=== PATIENT | male | born 1990 | race Caucasian/White ===

== ENCOUNTER 2018-02-02 03:20 | Emergency (ER) | payer SELFPAY ==
--- NOTE | 2018-02-02 03:43 | EDPHY ---
H & P Stated Complaint: left elbow injury Time Seen by Provider: 02/02/18 03:33 HPI/ROS: HPI The patient presents with left elbow pain which has been present for the last 5 days and he was roughhousing with a friend and hit his elbow on a wooden door. He has had pain of his elbow for the last several days though has had increased bruising throughout his forearm. He comes in for evaluation because of the worsening of his pain. He denies any numbness or tingling of his hand or arm. He does not have any with swelling. REVIEW OF SYSTEMS Constitutional: No fever, no chills. Eyes: No discharge. ENT: No sore throat. Cardiovascular: No chest pain, no palpitations. Respiratory: No cough, no shortness of breath. Gastrointestinal: No abdominal pain, no vomiting. Genitourinary: No hematuria. Musculoskeletal: No back pain. Skin: No rashes. Neurological: No headache. PMHx: Healthy Soc Hx: Alcohol use, cigarette smoker PHYSICAL General Appearance: Alert, no distress Eyes: Pupils equal and round no pallor or injection ENT, Mouth: Mucous membranes moist Respiratory: There are no retractions, lungs are clear to auscultation Cardiovascular: Regular rate and rhythm Gastrointestinal: Abdomen is soft and non-tender, no masses, bowel sounds normal Neurological: A&O, moves all extremities Skin: Warm and dry, no rashes Musculoskeletal: Neck is supple non tender Extremities: Left arm and forearm are diffusely ecchymotic and slightly edematous, compartments are soft, he has limited range of motion of his elbow secondary to pain, he has tenderness throughout his elbow joint Psychiatric: Patient is oriented X 3, there is no agitation Source: Patient Exam Limitations: No limitations - Personal History Current Tetanus/Diphtheria Vaccine: Yes Current Tetanus Diphtheria and Acellular Pertussis (TDAP): Yes - Medical/Surgical History Hx Asthma: No Hx Chronic Respiratory Disease: No Hx Diabetes: No Hx Cardiac Disease: No Hx Renal Disease: No Hx Cirrhosis: No Hx Alcoholism: Yes Hx HIV/AIDS: No Hx Splenectomy or Spleen Trauma: No Other PMH: denies - Social History Smoking Status: Current every day smoker Constitutional: Initial Vital Signs Temperature (C) 36.9 C 02/02/18 03:29 Heart Rate 100 02/02/18 03:29 Respiratory Rate 16 06/21/18 03:29 Blood Pressure 145/96 H 02/02/18 03:29 O2 Sat (%) 95 02/02/18 03:29 O2 Delivery Mode Room Air Allergies/Adverse Reactions: No Known Allergies Allergy (Verified 02/02/18 03:34) Home Medications: Medication Instructions Recorded NK [No Known Home Meds] 02/02/18 Medical Decision Making Differential Diagnosis: 27-year-old healthy man presents with injury to left elbow 5 days ago now with ongoing pain. On exam, he does have significant ecchymoses throughout his arm and forearm, limited range of motion of elbow and tenderness on exam. Differential diagnosis includes elbow fracture, elbow sprain, less likely elbow dislocation. Departure - Departure Disposition: Home, Routine, Self-Care Clinical Impression: Sprain of left elbow Qualifiers: Encounter type: initial encounter Qualified Code(s): S53.402A - Unspecified sprain of left elbow, initial encounter Arm bruise Qualifiers: Encounter type: initial encounter Laterality: left Qualified Code(s): S40.022A - Contusion of left upper arm, initial encounter Condition: Good Instructions: Elbow Sprain (ED) Additional Instructions: Please return to the emergency department if your worse in any way. There may be a small fracture to year elbow and because of this I would like for you to wear the sling. You should follow up with the orthopedic doctor in the next few days. Take ibuprofen 400 mg with acetaminophen 650 mg every 6 hr for pain. Use ice to help with this. Referrals: Andrew Pham MD [Medical Doctor] - As per Instructions
[2018-02-02 05:05] VITALS: BP 132/74
== END 2018-02-02 05:05 | disposition home or self-care (01) ==
DX: S53.402A Unspecified sprain of left elbow, initial encounter (principal); S40.022A Contusion of left upper arm, initial encounter; F17.210 Nicotine dependence, cigarettes, uncomplicated; W22.03XA Walked into furniture, initial encounter; Y99.8 Other external cause status; Y93.83 Activity, rough housing and horseplay
CPT/HCPCS: A4565

== ENCOUNTER 2018-07-06 16:38 | Observation (INO) | payer MEDICAID ==
--- NOTE | 2018-07-06 17:13 | EDPHY ---
HPI/HX/ROS/PE/MDM Narrative: CHIEF COMPLAINT: Abdominal pain, vomiting blood HISTORY OF PRESENT ILLNESS: The patient is a 28 y/o male with a history of alcoholism and gastritis complaining of abdominal pain, nausea, and vomiting onset 2 days ago. Yesterday he had one episode of vomiting, but there was no blood. He did notice that he had black stool. This morning he had several episodes of vomiting with blood present so he decided to present to the emergency department. While at the triage station he stated that he felt dizzy and nauseated. He then had what sounds like syncope accompanied by 20 sec of tonic clonic activity. Immediately following the episode the patient was alert and oriented, no postictal period. After the seizure-like activity he became nauseous and then vomited a large amount of blood per the triage nurse. The patient states that he drinks an "excessive" amount of alcohol daily and last drank a small amount of alcohol today. He denies history of withdrawal seizures. Denies illicit drug use. He was recently diagnosed with gastritis, but has not been taking his prescribed medications. No fever, chills, chest pain, shortness of breath, palpitations, diarrhea, urinary complaints, headache. REVIEW OF SYSTEMS: Aside from elements discussed in the HPI, a comprehensive 10-system review of systems was reviewed and is negative. PAST MEDICAL HISTORY: Alcoholism, gastritis SOCIAL HISTORY: Lives in [place], employed, single VITAL SIGNS: Reviewed by me GENERAL: Well-developed, well-nourished, resting in no respiratory distress. HEENT: Atraumatic. Eyes: No icterus, no injection. Mouth: moist mucous membranes. No erythema or lesions. Neck: supple with no adenopathy. LUNGS: Clear to auscultation bilaterally, no wheezes, rhonchi or rales. CARDIAC: Regular rate and rhythm, no rubs, murmurs or gallops. ABDOMEN: Soft, nontender, nondistended, bowel sounds normal. BACK: No CVA tenderness. EXTREMITIES: No trauma. No edema. Range of motion is normal throughout. NEURO: Alert and oriented, grossly nonfocal. SKIN: Pale and cool, no rash. PSYCHIATRIC: Normal mentation, no agitation. Portions of this note were transcribed by a medical physiologist. I personally performed a history, physical exam, medical decision making, and confirmed accuracy of information the transcribed note. ED Course: The patient is a 28 y/o male with a history of alcoholism and gastritis presenting with abdominal pain, nausea, and vomiting onset 2 days ago. Yesterday he noticed that his stool was dark and today he started vomiting blood. While at the triage station, the patient vomited a large amount of blood. On exam his pale and cool to the touch. An NG tube will be placed; labs, type and screen; 2L IV NS, 4mg IV Zofran, and 40mg IV Protonix administered. I discussed the probability of admission, which the patient is comfortable with. 1748: I spoke with the patient's nurse, who reports there was around 300cc's of dark blood in the initial NG aspirate. His H&H is 12 and 36. 175: Reassessed patient after his NG tube has been placed. He has now had a total of 400 cc's of blood in the suction container. Nursing staff to irrigate the NG tube. I 180: I reviewed patient's abdominal x-ray to confirm placement of the NG tube. 182: I consulted with the hospitalist service, Dr. Sandoval accepts admission of this patient. Patient will have a repeat H&H prior to being transferred to the floor. The patient's NG tube is still putting out blood but it has slowed. He may need a more emergent endoscopy; I will call gastroenterology to consult on this patient. 182: I consulted with Dr. Jimenez, production planning manager, regarding this patient. He will see the patient for definitive management. 191: Patient had a repeat H&H performed. Patient's hemoglobin has gone from 12.6-9.6 and his hematocrit has dropped from 36-26. Dr. Sandoval aware. Patient transferred to the ICU. Blood pressure the time of this dictation is 133/74 with heart rate of 97. MDM: Differential diagnoses for the patient's symptom complex was considered including but not limited to alcoholic gastritis, peptic ulcer disease, varicocele bleeding, seizure, syncopal episode, alcohol withdrawal. - Data Points Imaging Results: Imaging Impressions Abdomen X-Ray 07/06/18 17:21 Impression: 1. NG tube extends to the gastric fundus. Imaging: I viewed and interpreted images myself Laboratory Results: Laboratory Results 07/06/18 16:50 07/06/18 16:50 07/06/18 07/06/18 07/06/18 17:50 17:25 16:50 WBC RBC Hgb POC Hgb 12.9 gm/dL L gm/dL (13.7-17.5) Hct POC Hct 38 % L % (40-51) MCV MCH MCHC RDW Plt Count MPV Neut % (Auto) Lymph % (Auto) [place] % (Auto) Eos % (Auto) Baso % (Auto) Nucleat RBC Rel Count Absolute Neuts (auto) Absolute Lymphs (auto) Absolute Monos (auto) Absolute Eos (auto) Absolute Basos (auto) Absolute Nucleated RBC Immature Gran % Immature Gran # PT 13.7 SEC SEC (12.0-15.0) INR 1.03 (0.83-1.16) POC Sodium 140 mEq/L mEq/L (135-145) Sodium POC Potassium 3.4 mEq/L mEq/L (3.3-5.0) Potassium POC Chloride 105 mEq/L mEq/L (97-110) Chloride Carbon Dioxide Anion Gap POC BUN 30 mg/dL H mg/dL (7-23) BUN Creatinine POC Creatinine 0.7 mg/dL mg/dL (0.7-1.3) Estimated GFR Glucose POC Glucose 125 mg/dL H mg/dL (70-100) Calcium Total Bilirubin Conjugated Bilirubin Unconjugated Bilirubin AST ALT Alkaline Phosphatase Total Protein Albumin Lipase Patient ABO/Rh O POSITIVE Antibody Screen NEGATIVE Crossmatch IS Only See Detail 07/06/18 07/06/18 16:50 16:50 WBC 11.17 10^3/uL H 10^3/uL (3.80-9.50) RBC 3.48 10^6/uL L 10^6/uL (4.40-6.38) Hgb 12.0 g/dL L g/dL (13.7-17.5) POC Hgb Hct 35.8 % L % (40.0-51.0) POC Hct MCV 102.9 fL H fL (81.5-99.8) MCH 34.5 pg H pg (27.9-34.1) MCHC 33.5 g/dL g/dL (32.4-36.7) RDW 11.7 % % (11.5-15.2) Plt Count 229 10^3/uL 10^3/uL (150-400) MPV 10.6 fL fL (8.7-11.7) Neut % (Auto) 68.2 % % (39.3-74.2) Lymph % (Auto) 20.1 % % (15.0-45.0) [place] % (Auto) 10.5 % % (4.5-13.0) Eos % (Auto) 0.2 % L % (0.6-7.6) Baso % (Auto) 0.7 % % (0.3-1.7) Nucleat RBC Rel Count 0.0 % % (0.0-0.2) Absolute Neuts (auto) 7.63 10^3/uL H 10^3/uL (1.70-6.50) Absolute Lymphs (auto) 2.24 10^3/uL 10^3/uL (1.00-3.00) Absolute Monos (auto) 1.17 10^3/uL H 10^3/uL (0.30-0.80) Absolute Eos (auto) 0.02 10^3/uL L 10^3/uL (0.03-0.40) Absolute Basos (auto) 0.08 10^3/uL 10^3/uL (0.02-0.10) Absolute Nucleated RBC 0.00 10^3/uL 10^3/uL (0-0.01) Immature Gran % 0.3 % % (0.0-1.1) Immature Gran # 0.03 10^3/uL 10^3/uL (0.00-0.10) PT INR POC Sodium Sodium 140 mEq/L mEq/L (135-145) POC Potassium Potassium 3.7 mEq/L mEq/L (3.3-5.0) POC Chloride Chloride 105 mEq/L mEq/L (97-110) Carbon Dioxide 19 mEq/l L mEq/l (22-31) Anion Gap 16 mEq/L H mEq/L (6-14) POC BUN BUN 31 mg/dL H mg/dL (7-23) Creatinine 0.7 mg/dL mg/dL (0.7-1.3) POC Creatinine Estimated GFR > 60 Glucose 123 mg/dL H mg/dL (70-100) POC Glucose Calcium 8.9 mg/dL mg/dL (8.5-10.4) Total Bilirubin 1.1 mg/dL mg/dL (0.1-1.4) Conjugated Bilirubin 0.4 mg/dL mg/dL (0.0-0.5) Unconjugated Bilirubin 0.7 mg/dL mg/dL (0.0-1.1) AST 38 IU/L IU/L (17-59) ALT 62 IU/L IU/L (21-72) Alkaline Phosphatase 55 IU/L IU/L (38-126) Total Protein 6.8 g/dL g/dL (6.3-8.2) Albumin 4.4 g/dL g/dL (3.5-5.0) Lipase 60 IU/L IU/L (23-300) Patient ABO/Rh Antibody Screen Crossmatch IS Only Medications Given: Thiamine HCl 500 mg/ Sodium (Chloride) 105 mls @ 210 mls/hr IV DAILY ESTEFANI Stop: 07/08/18 09:29 Last Admin: 07/06/18 21:09 Dose: 105 mls Discontinued Medications Sodium Chloride (Ns) 1,000 mls @ 0 mls/hr IV EDNOW ONE; Wide Open PRN Reason: Protocol Stop: 07/06/18 17:21 Last Admin: 07/06/18 17:26 Dose: 1,000 mls Sodium Chloride (Ns) 1,000 mls @ 0 mls/hr IV EDNOW ONE; Wide Open PRN Reason: Protocol Stop: 07/06/18 17:21 Last Admin: 07/06/18 17:26 Dose: 1,000 mls Sodium Chloride (Ns) 1,000 mls @ 3,000 mls/hr IV ONCE ONE Stop: 07/06/18 20:08 Last Admin: 07/06/18 20:20 Dose: 1,000 mls Metoclopramide HCl (Reglan Injection) 10 mg IVP ONCE ONE Stop: 07/06/18 19:56 Last Admin: 07/06/18 20:20 Dose: 10 mg Ondansetron HCl (Zofran) 4 mg IVP EDNOW ONE Stop: 07/06/18 17:21 Last Admin: 07/06/18 17:26 Dose: 4 mg Pantoprazole Sodium (Protonix) 40 mg IVP EDNOW ONE Stop: 07/06/18 17:27 Last Admin: 07/06/18 17:41 Dose: 40 mg Pantoprazole Sodium (Protonix) 40 mg IVP Q6H ESTEFANI Stop: 01/02/19 19:59 Last Admin: 07/06/18 20:20 Dose: 40 mg Point of Care Test Results: Chemistry 07/06/18 17:25 POC Sodium 140 mEq/L mEq/L (135-145) POC Potassium 3.4 mEq/L mEq/L (3.3-5.0) POC Chloride 105 mEq/L mEq/L (97-110) POC BUN 30 mg/dL H mg/dL (7-23) POC Creatinine 0.7 mg/dL mg/dL (0.7-1.3) POC Glucose 125 mg/dL H mg/dL (70-100) ISTAT H&H 07/06/18 17:25 POC Hgb 12.9 gm/dL L gm/dL (13.7-17.5) POC Hct 38 % L % (40-51) General Time Seen by Provider: 07/06/18 17:07 Initial Vital Signs: Initial Vital Signs Temperature (C) 36.7 C 07/06/18 17:08 Heart Rate 102 H 07/06/18 17:08 Respiratory Rate 18 07/06/18 17:08 Blood Pressure 134/92 H 07/06/18 17:08 O2 Sat (%) 98 07/06/18 17:08 O2 Delivery Mode Room Air Allergies/Adverse Reactions: No Known Allergies Allergy (Verified 02/02/18 03:34) Home Medications: Medication Instructions Recorded NK [No Known Home Meds] 07/06/18 Departure - Departure Disposition: [facility] Inpatient Acute Clinical Impression: GI bleed Qualifiers: GI bleed type/associated pathology: gastrointestinal hemorrhage with hematemesis Qualified Code(s): K92.0 - Hematemesis Hematemesis Qualifiers: Nausea presence: with nausea Qualified Code(s): K92.0 - Hematemesis Condition: Fair Report Scribed for: Makayla Ivory Report Scribed by: Betsy Ramírez Date of Report: 07/06/18 Time of Report: 17:25
[2018-07-06] MEDS ORDERED: ONDANSETRON 4 MG/2 ML VIAL IVP ONE (17:20)
[2018-07-06] MEDS ORDERED: NS 1,000 ML IV ONE ×3 (17:20→19:49)
[2018-07-06] MEDS ORDERED: PANTOPRAZOLE SODIUM 40 MG VIAL IVP ONE (17:26)
[2018-07-06 17:32] LABS: PLATELET COUNT 229 10^3/uL (150-400)
[2018-07-06 18:36] LABS: INR 1.03 (0.83-1.16); PROTIME(PATIENT) 13.7 SEC (12.0-15.0)
[2018-07-06 19:12] LABS: PLATELET COUNT 153 10^3/uL (150-400)
[2018-07-06] MEDS ORDERED: ACETAMINOPHEN 325 MG TAB PO PRN (19:49)
[2018-07-06] MEDS ORDERED: ONDANSETRON DISINTEGRATING 4 MG TAB PO PRN (19:49)
[2018-07-06] MEDS ORDERED: ONDANSETRON 4 MG/2 ML VIAL IVP PRN (19:49)
[2018-07-06] MEDS ORDERED: METOCLOPRAMIDE 10 MG/2 ML VIAL IVP ONE (19:55)
[2018-07-06] MEDS ORDERED: LORazepam 2 MG/ML INJ IVP PRN (19:58)
[2018-07-06] MEDS ORDERED: FLUMAZENIL 0.5 MG/5 ML MDV IVP PRN (19:58)
[2018-07-06] MEDS ORDERED: PANTOPRAZOLE SODIUM 40 MG VIAL IVP SCH (20:00)
[2018-07-06] MEDS ORDERED: NS 1,000 ML IV SCH (20:00)
--- NOTE | 2018-07-06 20:15 | PDANEPAE ---
ANE History of Present Illness GI bleed s/p N/V x 2 days ANE Past Medical History - Cardiovascular History Hx Hypertension: No Hx Arrhythmias: No Hx Chest Pain: No Hx Coronary Artery / Peripheral Vascular Disease: No Hx CHF / Valvular Disease: No Hx Palpitations: No - Pulmonary History Hx COPD: No Hx Asthma/Reactive Airway Disease: No Hx Recent Upper Respiratory Infection: No Hx Oxygen in Use at Home: No Hx Sleep Apnea: No - Neurologic History Hx Cerebrovascular Accident: No Hx Seizures: Yes Hx Dementia: No Neurologic History Comment: Possible 1st seizure today when arrived to hospital. Pt thinks most likely 2/2 to EtOH. - Endocrine History Hx Diabetes: No Hypothyroid: No Hyperthyroid: No Obesity: no - Renal History Hx Renal Disorders: No - GI History Hx Gastrointestinal Disorders: Yes Gastrointestinal History Comment: + GI bleed s/p N/V x 2 days. + Heavy EtOH use - Chronic Pain History Chronic Pain: No ANE Review of Systems Review of Systems: - Exercise capacity Exercise capacity: >=4 METS ANE Patient History - Allergies Allergies/Adverse Reactions: No Known Allergies Allergy (Verified 02/02/18 03:34) - Home Medications Home Medications: NK [No Known Home Meds] 07/06/18 [Last Taken Unknown] - NPO status NPO Status: no food or drink >8 hours - Smoking Hx Smoking Status: Current every day smoker Marijuana use: Yes - Alcohol Use Alcohol Use: Heavy ANE Labs/Vital Signs - Labs Result Diagrams: 07/06/18 18:50 07/06/18 16:50 - Vital Signs Blood Pressure: 137/80 Heart Rate: 117 Respiratory Rate: 13 O2 Sat (%): 98 Height: 187.96 cm Weight: 72.5 kg ANE Physical Exam - Airway Neck exam: FROM Mallampati Score: Class 1 Mouth exam: normal dental/mouth exam - Pulmonary Pulmonary: no respiratory distress - Cardiovascular Cardiovascular: regular rate and rhythym - ASA Status ASA Status: II, E ANE Anesthesia Plan Anesthesia Plan: GA with mask
--- NOTE | 2018-07-06 20:19 | GHP ---
DATE OF ADMISSION: 07/06/2018 CHIEF COMPLAINT: Hematemesis. HISTORY OF PRESENT ILLNESS: This is a 28-year-old man who drinks a significant amount of alcohol, wh o presents with hematemesis. He reports melenic stool starting yesterday. He had a significant epis ode of hematemesis today. In triage, he had another likely vagal episode with significant subsequent hematemesis. He denies any dizziness lightheadedness or chest pain right now. He does not take any NSAIDs. He has never been told that he has liver problems. He drinks approximately 12 drinks a day . He has had mild shakes for withdrawal before, but never withdrawal seizures. PAST MEDICAL/SURGICAL HISTORY: As above. MEDICATIONS: Please see medication reconciliation. ALLERGIES: No known drug allergies. FAMILY HISTORY: His grandmother has Alzheimer's. SOCIAL HISTORY: He drinks as above and smokes cigarettes. REVIEW OF SYSTEMS: A 10-point review of systems is conducted and is negative except per HPI. PHYSICAL EXAM: VITAL SIGNS: Blood pressure 133/74, heart rate has been as fast as 112, 16 respirati ons per minute, saturating 98% on room air. Temperature is 36.7. GENERAL: The patient is a pleasan t man who is resting comfortably in no acute distress. HEENT: Normocephalic, atraumatic. He has an NG tube in place. CARDIOVASCULAR: Tachycardic. There are no murmurs, rubs, or gallops. PULMONARY : Lungs clear to auscultation bilaterally. ABDOMEN: Soft, nontender, nondistended. SKIN: No rash . : No Nieves. NEUROLOGIC: Alert and oriented x3. He is moving all extremities. PSYCHIATRIC: Normal mood and affect. LABS: Hemoglobin has dropped from initial of 12 down to 9.3. He has no prior hemoglobins in our sys tem. His INR is 1.0. His BUN is 31, creatinine 0.7, bicarb 19. LFTs are normal. DATA: 1. Discussed with Dr. Ivory, will admit to ICU. 2. Abdominal x-ray shows NG tube in correct position. 3. Discussed with Dr. Clark, who planned to do endoscopy later today. IMPRESSION AND PLAN: 1. Upper GI bleed: He has a nasogastric tube in place with some ongoing output. He has risk for al coholic gastritis. Liver function tests are normal, I do not think he needs octreotide at this point . He is hemodynamically stable. We will plan 2 unit blood transfusion, IV Protonix, emergent endosc opy. Dr. Clark was involved and will see him tonight. He will be triaged to the ICU. 2. Acute blood loss anemia: Transfusion as above. 3. Alcohol abuse: At risk for withdrawal, we will place him on CIWA. He is not in severe withdrawa l at this point. He will get thiamin. BILLING: I spent a total of 45 minutes of bedside critical care time managing GI hemorrhage. /[id number]/MODL
[2018-07-06] MEDS ORDERED: PROPOFOL 200 MG/20 ML VIAL ONE ×4 (20:23→20:44)
--- NOTE | 2018-07-06 20:55 | GIREPORT ---
[facility] - Endoscopy Department Patient Name: Bernard Roach Procedure Date: 07/06/2018 8:10 PM Patient Type: Inpatient Attending MD/ ER Physician: Byron Murphy Procedure: Upper GI endoscopy Indications: Acute post hemorrhagic anemia, Hematemesis Providers: Flaco Jimenez MD Medicines: Propofol per Anesthesia = IV general with spontaneous respirations Complications: No immediate complications. Estimated blood loss: Minimal. Description of Procedure: After obtaining informed consent, the endoscope was passed under direct vision. Throughout the procedure, the patient's blood pressure, pulse, and oxygen saturations were monitored continuously. The Endoscope was intro duced through the mouth, and advanced to the third part of duodenum. The uppe r GI endoscopy was accomplished without difficulty. The patient tolerated th e procedure. Findings: A non-bleeding Criss-Burkett tear with stigmata of recent bleeding was found. For hemostasis, two hemostatic clips were successfully placed (M R conditional). There was no bleeding during, or at the end, of the proce dure. The entire examined stomach was normal. The examined duodenum was normal. The exam was otherwise without abnormality. Estimated Blood Loss: Estimated blood loss was minimal. Post Op Diagnosis: - Criss-Burkett tear. Clips (MR conditional) were placed. - Normal stomach. - Normal examined duodenum. - The examination was otherwise normal. - No specimens collected. Recommendation: - Return patient to hospital haq for ongoing care. - Use Protonix (pantoprazole) 40 mg PO BID for four weeks - Stop alcohol intake - Clear liquid diet. - Check hemoglobin q 6 hours until stable. - Thank you for allowing me to help in your patient's care. Do not hesi abbott to call with any questions. Attending Participation: I personally performed the entire procedure. Tony Sam M.D Flaco Jimenez MD 07/06/2018 8:54:30 PM This report has been signed electronicallyMathew MD Tony Number of Addenda: 0 Note Initiated On: 07/06/2018 8:10 PM [email or web address]
--- NOTE | 2018-07-06 20:59 | SOAPPROG ---
SOAP Progress Note Assessment/Plan: Assessment:Plan: 28 y/o male with prob MWT and post hemorrhagic anemia needs urgent EGD with anesthesia follow HB/HCT NGT clear so may not need any transfusion Mj Jimenez MD [phone] 07/06/18 20:57 Objective: Vital Signs Temp Pulse Resp BP Pulse Ox 37.1 C 117 H 13 137/80 H 98 07/06/18 20:00 07/06/18 20:15 07/06/18 20:15 07/06/18 20:15 07/06/18 20:15 Laboratory Results 07/06/18 18:50 07/05/18 07/06/18 07/07/18 05:59 05:59 05:59 Intake Total 2000 Output Total 400 Balance 1600 PT 13.7 SEC (12.0-15.0) 07/06/18 17:50 INR 1.03 (0.83-1.16) 07/06/18 17:50 ICD10 Worksheet Patient Problems: Problems Problem Status Onset GI bleed Acute Hematemesis Acute
[2018-07-06] MEDS: THIAMINE HCL 500 MG in NS 100 ML IV SCH (21:09)
--- NOTE | 2018-07-06 21:23 | POSTANESTH ---
Post Anesthetic Evaluation Cardiovascular Status: Normal, Stable Respiratory Status: Normal, Stable Level of Consciousness/Mental Status: Can Participate in Eval Pain Control: Adequate, Prn Tx Ordered Nausea/Vomiting Control: Adequate, Prn Tx Ordered Complications Possibly Related to Anesthesia: None Noted
--- NOTE | 2018-07-06 21:50 | GCON ---
DATE OF CONSULTATION: 07/06/2018 REFERRING PHYSICIAN: Makayla Ivory MD INDICATION FOR CONSULTATION: Hematemesis, posthemorrhagic anemia, possible Criss-Burkett tear. HISTORY OF PRESENT ILLNESS: I have been asked by Dr. Ivory to see Mr. Roach in consultation for [facility] complaint of hematemesis and posthemorrhagic anemia. Bernard is a 28-year-old male who has an alc ohol abuse history. He was in his usual state of health until yesterday morning, when he started to have some nausea and vomiting. He started to have an episode of hematemesis yesterday morning, and d id have some melena. He did not seek attention until today, when he had 2 more episodes of hematemes is and continued melena. He presented to the emergency room, and was witnessed to have hematemesis i n the emergency room. They placed an NG tube and removed about 400 cc of fresh blood. He was volume resuscitated and sent to the intensive care unit for admission for the above, and I am called to [facility] evaluate and treat in that regard. He denies any history of acid reflux. He does not take any asp irin, Motrin, Advil, ibuprofen, or Feldene. His liver enzymes are normal, as well as his ProTime, so I do not expect to see any etiology of portal hypertension, i.e., varices. I expect this will be a Criss-Burkett tear. Patient also had his first seizure today, likely a withdrawal seizure. PAST MEDICAL HISTORY: Alcoholism, gastritis. PAST SURGICAL HISTORY: [place] teeth. MEDICATIONS AT HOME: None. ALLERGIES: No known drug allergies. FAMILY HISTORY: No colon cancer to his knowledge. SOCIAL HISTORY: Smokes approximately a pack of cigarettes a day. He drinks anywhere from 4-5 shots of whiskey a day, and approximately 6-12 beers a day. He lives with a roommate. He is employed at a [employer] shop. REVIEW OF SYSTEMS: A complete review of systems has been performed and negative other than noted in the HPI. Other pertinent negatives include no chest pain, palpitations, diaphoresis. No history of dysphagia, odynophagia. No early satiety. PHYSICAL EXAM: GENERAL: Well-developed, well-nourished young male in no acute distress. He is sitt ing in his bed comfortably. His blood pressure is 137/80. He is tachycardic at 117. His respiratio n is 13. He is 98% on room air. Temperature 37.1. EYES: Anicteric. PERRL, EOMI. Mouth: No lesi ons. Moist mucous membranes. NECK: Supple. Full range of motion. No JVD. BACK: No spine tender ness. No CVA tenderness. LUNGS: Clear to auscultation. CARDIAC: S1, S2. Tachycardic. No murmur s, rubs, or gallops appreciated. ABDOMEN: Bowel sounds are normal in pitch and frequency. Soft and nontender. No hepatosplenomegaly. EXTREMITIES: No cyanosis, clubbing, or edema. NEUROLOGIC: Aircraft Systems Technician nial nerves intact. Nonfocal. He does have an NG tube in place that is currently pulling out clear fluid. LABORATORY DATA: WBC 7.64. Hemoglobin was 12.0 in the ER, dropping to 9.3 on repeat. Hematocrit wa s 35.8, dropping to 26.9. MCV is elevated to 102.9, RDW is normal at 11.7. His hemoglobin in March 2014 was 17.3. His chemistries today: Sodium 140, potassium 3.4, chloride 105, bicarb 19, BUN 31, creatinine 0.7, glucose 123, calcium 8.9, total bilirubin 1.1, AST 38, ALT 62, alkaline phosphatase 6 55, total protein 6.8, albumin 4.4, lipase 60. ProTime 13.7, INR 1.03. Abdominal x-ray performed to day. NG tube extends to the gastric fundus. ASSESSMENT: 1. Hematemesis. 2. Posthemorrhagic anemia. 3. Alcoholism. 4. Probable Criss-Burkett tear causing the above. RECOMMENDATIONS: 1. Emergent EGD with anesthesia for presumed Criss-Burkett tear. 2. Proton pump inhibitor will be recommended if there is Criss-Burkett tear or peptic disease. 3. Serial hemoglobin and hematocrit. Currently there is no blood coming out of his NG tube, so he m ay not need any transfusions, if I can prevent any further bleeding. 4. Alcohol withdrawal, as per hospitalists. 5. Recommend alcohol rehab and lifelong alcohol abstinence. 6. Further recommendations to follow results of EGD. Thank you for allowing me to participate in this patient's healthcare. Do not hesitate to call me if you have any questions. /[id number]/MODL
[2018-07-07] MEDS ORDERED: PANTOPRAZOLE SODIUM 40 MG VIAL IVP SCH (09:00)
[2018-07-07] MEDS: THIAMINE HCL 500 MG in NS 100 ML IV SCH (09:06)
[2018-07-07] MEDS ORDERED: NICOTINE 21 MG/24 HR PATCH TD SCH (10:15)
--- NOTE | 2018-07-07 11:44 | SOAPPROG ---
SOAP Progress Note Assessment/Plan: Assessment:Plan: 1) MWT - s/p clips x 2, advance diet, prevent vomiting, PPI for 4 weeks once daily 2) anemia - HB stable, BUN down c/w no more bleeding, doesn't need transfusion 3) diet - advance to regular 4) alcoholism - needs lifelong abstinence will sign off for now 07/07/18 11:41 Subjective: CC- hematemesis from MWT, post hemorrhagic anemia pt with no more vomiting hb stable, bun down no abdo pain Objective: Vital Signs Temp Pulse Resp BP Pulse Ox 37.1 C 94 16 116/72 97 07/07/18 06:00 07/07/18 10:00 07/07/18 10:00 07/07/18 11:00 07/07/18 10:00 Laboratory Results 07/07/18 09:23 07/07/18 03:00 07/06/18 07/07/18 07/08/18 05:59 05:59 05:59 Intake Total 5200 Output Total 450 Balance 4750 PT 13.7 SEC (12.0-15.0) 07/06/18 17:50 INR 1.03 (0.83-1.16) 07/06/18 17:50 A+Ox3 CTA S1S2 +BS, soft nt Laboratory Tests 07/06/18 07/06/18 07/06/18 16:50 17:25 18:50 Hgb 9.3 L POC Hgb 12.9 L BUN 31 H 07/07/18 07/07/18 07/07/18 03:00 03:00 09:23 Hgb 9.5 L 9.1 L POC Hgb BUN 17 ICD10 Worksheet Patient Problems: Problems Problem Status Onset GI bleed Acute Hematemesis Acute
[2018-07-07 12:24] VITALS: BP 105/55
--- NOTE | 2018-07-07 13:49 | GDS ---
DISCHARGE DIAGNOSES: 1. UGIB due to Criss-Burkett tear. 2. Acute blood loss anemia. 3. Alcohol dependence. 4. Metabolic anion gap acidosis. PROCEDURES: 1. EGD, 07/06/2018: Nonbleeding Criss-Burkett tear with stigmata of recent bleeding. 2. Hemostatic clips were placed. HISTORY OF PRESENT ILLNESS: A 28-year-old male with alcohol dependence, drinking up to 12 alcoholic drinks a day, presented with hematemesis. He had black stools yesterday and then a large bloody emesis. He had a vagal episode in the emergency room. No dizziness or lightheadedness. Denies NSAIDs. He has had mild checks from withdrawal in the past, but no seizures. HOSPITAL COURSE BY PROBLEM: 1. Upper GI bleed, secondary to Criss-Burkett tear. Underwent EGD and placement of 2 clips. H and H stable after 1 unit. Continue Protonix daily for 1 month. Counseled on alcohol cessation and noted to be at high risk for rebleed. 2. Alcohol dependence: He is not interested in quitting at this time. I did health counselor him on the risks he is at if he continues to drink. He acknowledges these. DISPOSITION: Patient is stable for discharge home. NEW MEDICATIONS: Protonix 40 mg daily. DIET: Advance diet slowly. PHYSICAL EXAMINATION: VITAL SIGNS: Today, temperature 36.8, blood pressure 105 /55, heart rate in the 80s, respirations 14, 97% on room air. GENERAL: No acute distress. HEENT: PERRLA. Moist mucous membranes. CV: Regular rate and rhythm. LUNGS: Clear. ABDOMEN: Soft. No tenderness or distention. MUSCULOSKELETAL: 5/5 upper and lower extremities. NEUROLOGIC: Cranial nerves 2 through 12 intact. Minimal tremor. No tongue fasciculation. PSYCH: Alert and oriented x3. TIME SPENT ON DISCHARGE: Greater than 30 minutes. Bedside counseling patient on alcohol cessation and medication plan. /[id number]/MODL MTDD
[2018-07-09] MEDS ORDERED: THIAMINE HCL 100 MG TAB PO SCH (09:00)
== END 2018-07-07 14:08 | disposition home or self-care (01) ==
LOC: INTOOBSV 17:54 → F2N 19:27
PROVIDERS: ADMIT Student in an Organized Health Care Education/Training Program; ATTEND Student in an Organized Health Care Education/Training Program
PROC: 0W3P8ZZ Control Bleeding in Gastrointestinal Tract, Via Natural or Artificial Opening Endoscopic (ICD-10-PCS; principal; 2018-07-06 20:30)
DX: K22.6 Gastro-esophageal laceration-hemorrhage syndrome (principal); F10.20 Alcohol dependence, uncomplicated; D62 Acute posthemorrhagic anemia
CPT/HCPCS: 43227; 74018; G0378; P9016; 82435-PO; 82565-PO; 82947-PO; 84132-PO; 84295-PO; 84520-PO; 85014-PO; 96374; J2060; J2405; J2704; J2765; J3411

== ENCOUNTER 2018-08-17 21:31 | Emergency (ER) | payer MEDICAID ==
--- NOTE | 2018-08-17 21:43 | EDPHY ---
H & P Stated Complaint: NOT FEELING WELL, ETOH ABUSE Source: Patient, Family (Friends) Exam Limitations: Intoxication - Personal History Current Tetanus Diphtheria and Acellular Pertussis (TDAP): Unsure - Medical/Surgical History Hx Asthma: No Hx Chronic Respiratory Disease: No Hx Diabetes: No Hx Cardiac Disease: No Hx Renal Disease: No Hx Cirrhosis: No Hx Alcoholism: Yes Hx HIV/AIDS: No Hx Splenectomy or Spleen Trauma: No Other PMH: Gastritis, GI BLEED, ETOH ABUSE - Social History Smoking Status: Current every day smoker Time Seen by Provider: 08/17/18 21:40 HPI/ROS: HPI: This is a 28-year-old male who presents with Chief Complaint: NOT FEELING WELL, ETOH ABUSE Location: Epigastric Quality: Pain Duration: Unknown Signs and Symptoms: no fever, no nausea, no vomiting, no hematemesis, no blood in stool, no abdominal bloating, no diarrhea, no back pain, no urinary symptoms , no testicular/groin pain, no indigestion, no chest pain, no shortness of breath Timing: Acute on chronic Severity: [id number] Context: Patient is currently intoxicated and has a history of alcohol abuse presents accompanied by friend with complaints of "not feeling well." Patient reports that he drank "a lot" today. Patient reports that he has a history of GI bleeding in the past. He currently denies any hematemesis or blood in his stool. He does complain of epigastric pain that is [id number] in nature. Smokes marijuana. Modifying Factors: None Comment: ROS: A comprehensive 10 system review of systems is otherwise negative aside from elements mentioned in the history of present illness. MEDICAL/SURGICAL/SOCIAL HISTORY: Medical history: Gastritis, GI BLEED, ETOH ABUSE Surgical history: Denies Social history: Current every day smoker. Alcohol abuse. Family history noncontributory. CONSTITUTIONAL: Intoxicated, young adult white male, awake and alert, no obvious distress HEENT: Atraumatic and normocephalic, PERRL, EOMI. Nares patent; no rhinorrhea; no nasal mucosal edema. Tympanic membranes clear. Oropharynx clear, no exudate and moist pink mucosa. Airway patent. No lymphadenopathy. No meningismus. Cardiovascular: Normal S1/S2, tachycardia, regular rhythm, without murmur rub or gallop. PULMONARY/CHEST: Symmetrical and nontender. Clear to auscultation bilaterally. Good air movement. No accessory muscle usage. ABDOMEN: Soft, nondistended, moderate epigastric tenderness, no rebound, no guarding, no peritoneal signs, no masses or organomegaly. No CVAT. EXTREMITIES: 2/2 pulses, strength 5/5, no deformities, no clubbing, no cyanosis or edema. NEUROLOGICAL: no focal neuro deficits. GCS 15. Slurred speech. SKIN: Warm and dry, no erythema. no rash. Good capillary refill. (Sophie Lal) Constitutional: Initial Vital Signs Temperature (C) 36.7 C 08/17/18 21:36 Heart Rate 111 H 08/17/18 21:36 Respiratory Rate 18 08/17/18 21:36 Blood Pressure 144/89 H 08/17/18 21:36 O2 Sat (%) 95 08/17/18 21:36 O2 Delivery Mode Room Air Allergies/Adverse Reactions: No Known Allergies Allergy (Verified 02/02/18 03:34) Home Medications: Medication Instructions Recorded NK [No Known Home Meds] 08/17/18 Medical Decision Making - Diagnostics Imaging Results: Imaging Impressions Abdomen X-Ray 08/17/18 21:44 Impression: 1. Negative abdominal radiographs. ED Course/Re-evaluation: Vital signs reviewed and show tachycardia. Placed on secured entrance monitor. IV access, laboratory studies, abdominal x-ray ordered Patient given 1 L normal saline, IV Zofran, IV Protonix 40 mg, GI cocktail 2223: Labs reviewed. No signs of leukocytosis/anemia/platelet dysfunction/JACQUELIN/ elevated LFTs/electrolyte imbalance/pancreatitis. 2227: Abdominal x-ray my read shows no free air, perforation, obstruction. 2232: TGKC=[id number] Suspect alcoholic gastritis. Will continue to monitor patient and once more sober perform a road test and wants able to ambulate without ataxia [facility] with Librium prepack. Placed on [facility] Hold. 0002: End of shift. Signed over to Dr. Voss. Pending re-evaluation, road test, discharged to the [facility]. This patient was seen under the supervision of my secondary supervising physician. I evaluated care for this patient independently. Discussed this patient with Dr. Voss who did not see the patient. (Sophie Lal) 0544AM: Patient eloped from Er. Left Er without staff aware, did not notify anyone. Per nursing staff he did not have an IV in. Security to search for patient. Was here for over 8+ hours sobering (Fabiano Voss) Differential Diagnosis: Abdominal pain including but not limited to appendicitis, cholecystitis, gastritis and urinary tract infection. (Sophie Lal) - Data Points Laboratory Results: Laboratory Results 08/17/18 21:50 08/17/18 21:50 08/17/18 08/17/18 21:50 21:50 WBC 7.01 10^3/uL 10^3/uL (3.80-9.50) RBC 4.98 10^6/uL 10^6/uL (4.40-6.38) Hgb 15.7 g/dL g/dL (13.7-17.5) Hct 44.6 % % (40.0-51.0) MCV 89.6 fL fL (81.5-99.8) MCH 31.5 pg pg (27.9-34.1) MCHC 35.2 g/dL g/dL (32.4-36.7) RDW 12.0 % % (11.5-15.2) Plt Count 286 10^3/uL 10^3/uL (150-400) MPV 9.7 fL fL (8.7-11.7) Neut % (Auto) 44.5 % % (39.3-74.2) Lymph % (Auto) 46.6 % H % (15.0-45.0) [place] % (Auto) 7.4 % % (4.5-13.0) Eos % (Auto) 0.6 % % (0.6-7.6) Baso % (Auto) 0.6 % % (0.3-1.7) Nucleat RBC Rel Count 0.0 % % (0.0-0.2) Absolute Neuts (auto) 3.12 10^3/uL 10^3/uL (1.70-6.50) Absolute Lymphs (auto) 3.27 10^3/uL H 10^3/uL (1.00-3.00) Absolute Monos (auto) 0.52 10^3/uL 10^3/uL (0.30-0.80) Absolute Eos (auto) 0.04 10^3/uL 10^3/uL (0.03-0.40) Absolute Basos (auto) 0.04 10^3/uL 10^3/uL (0.02-0.10) Absolute Nucleated RBC 0.00 10^3/uL 10^3/uL (0-0.01) Immature Gran % 0.3 % % (0.0-1.1) Immature Gran # 0.02 10^3/uL 10^3/uL (0.00-0.10) Sodium 140 mEq/L mEq/L (135-145) Potassium 4.2 mEq/L mEq/L (3.5-5.2) Chloride 104 mEq/L mEq/L (97-110) Carbon Dioxide 23 mEq/l mEq/l (22-31) Anion Gap 13 mEq/L mEq/L (6-14) BUN 9 mg/dL mg/dL (7-23) Creatinine 0.8 mg/dL mg/dL (0.7-1.3) Estimated GFR > 60 Glucose 106 mg/dL H mg/dL (70-100) Calcium 8.9 mg/dL mg/dL (8.5-10.4) Total Bilirubin 0.5 mg/dL mg/dL (0.1-1.4) Conjugated Bilirubin 0.4 mg/dL mg/dL (0.0-0.5) Unconjugated Bilirubin 0.1 mg/dL mg/dL (0.0-1.1) AST 29 IU/L IU/L (17-59) ALT 34 IU/L IU/L (21-72) Alkaline Phosphatase 83 IU/L IU/L (38-126) Total Protein 7.5 g/dL g/dL (6.3-8.2) Albumin 4.8 g/dL g/dL (3.5-5.0) Lipase 64 IU/L IU/L (23-300) Ethyl Alcohol 427 mg/dL H* mg/dL (0-10) Medications Given: Pantoprazole Sodium (Protonix) 40 mg IVP ONCE ONE Stop: 08/18/18 21:45 Last Admin: 08/17/18 22:03 Dose: 40 mg Discontinued Medications Al Hydroxide/Mg Hydroxide (Maalox Susp) 30 ml PO ONCE ONE Stop: 08/17/18 21:45 Last Admin: 08/17/18 21:58 Dose: 30 ml Hyoscyamine Sulfate (Levsin, Hyomax-Sl) 0.25 mg PO ONCE ONE Stop: 08/17/18 21:45 Last Admin: 08/17/18 21:58 Dose: 0.25 mg Sodium Chloride (Ns) 1,000 mls @ 0 mls/hr IV EDNOW ONE; Wide Open PRN Reason: Protocol Stop: 08/17/18 21:45 Last Admin: 08/17/18 21:58 Dose: 1,000 mls Lidocaine (Lidocaine 2% Viscous) 15 ml PO ONCE ONE Stop: 08/17/18 21:45 Last Admin: 08/17/18 21:58 Dose: 15 ml Ondansetron HCl (Zofran) 4 mg IVP EDNOW ONE Stop: 08/17/18 21:45 Last Admin: 08/17/18 21:58 Dose: 4 mg Departure - Departure Disposition: Against Medical Advice Clinical Impression: Alcoholic intoxication without complication Condition: Good Instructions: Gastritis (ED), Abuse of Alcohol (ED) Additional Instructions: Please refrain from drinking alcohol excessively. Take over the counter Nexium daily. Avoid NSAID use that include ibuprofen, Motrin, Advil. Follow-up with Gastroenterology in the next 1-2 weeks. Referrals: [facility] [Outside] - As per Instructions Birgit Solano MD [Medical Doctor] - As per Instructions
[2018-08-17] MEDS ORDERED: HYOSCYAMINE SULFATE 0.125 MG TAB PO ONE (21:44)
[2018-08-17] MEDS ORDERED: ONDANSETRON 4 MG/2 ML VIAL IVP ONE (21:44)
[2018-08-17] MEDS ORDERED: NS 1,000 ML IV ONE (21:44)
[2018-08-17] MEDS ORDERED: LIDOCAINE 2% VISCOUS 15 ML UDCUP PO ONE (21:44)
[2018-08-17] MEDS ORDERED: MAG HYDROX/AL HYDROX/SIMETH 30 ML UDCUP PO ONE (21:44)
[2018-08-17 22:00] LABS: PLATELET COUNT 286 10^3/uL (150-400)
[2018-08-17] MEDS ORDERED: PANTOPRAZOLE SODIUM 40 MG VIAL ONE (22:01)
[2018-08-18 02:41] VITALS: BP 117/82
[2018-08-18] MEDS ORDERED: PANTOPRAZOLE SODIUM 40 MG VIAL IVP ONE (21:44)
== END 2018-08-18 05:49 | disposition left against medical advice (07) ==
DX: Z53.20 Procedure and treatment not carried out because of patient's decision for unspecified reasons (principal); F10.120 Alcohol abuse with intoxication, uncomplicated
CPT/HCPCS: 96374; G0480; J2405

== ENCOUNTER 2018-08-21 19:31 | Emergency (ER) | payer OTHER, MEDICAID ==
[2018-08-21 19:46] VITALS: BP 112/68
[2018-08-21] MEDS ORDERED: NS 1,000 ML IV ONE (20:00)
--- NOTE | 2018-08-21 20:01 | EDPHY ---
HPI/HX/ROS/PE/MDM Narrative: CLINICAL IMPRESSION: Acute Alcohol Intoxication ASSESSMENT/PLAN: Patient is a 28-year-old male with no significant medical history who presents with acute alcohol intoxication. Patient is afebrile and not toxic appearing, he is in no acute distress on arrival however clinically intoxicated. His abdomen was soft and nontender, no evidence of a surgical abdomen or other acute intra-abdominal process. The patient was brought in for clearance to detox, he proceeded to be verbally and physically abusive to staff and was subsequently taken to long-term. The patient was considered stable for discharge to PD custody. History and physical examination is most consistent with acute alcohol intoxication without evidence of withdrawal, other substance abuse, toxidrome, medication overdose, head injury, hypoglycemia or other electrolyte abnormality. On repeat examination prior to discharge the patient still appears clinically intoxicated however is in no acute distress. Return precautions discussed-patient to return for signs of withdrawal, nausea, vomiting or for any other concerning symptom. DIFFERENTIAL DX: Altered mental status including but not limited to hypoglycemia, infectious process, electrolyte abnormality, head injury and intoxicants. ED COURSE: Dr. Perez evaluated this patient, ok for dc to long-term. CHIEF COMPLAINT: Alcohol intoxication HPI: Patient is a 28-year-old male with no significant medical history who is brought in by ambulance after he called the Police Department complaining of being very intoxicated. Patient states he drinks daily, anywhere from a pt to a L of bourbon. He does not know how much he has had to drink today. He complains of being intoxicated, mild nausea and mild generalized abdominal pain. No history of pancreatitis. Patient denies any recent fever, chills, chest pain, vomiting or shortness of breath. He denies any urinary symptoms to include dysuria or hematuria. Bowel movements have been normal. Patient denies any suicidal or homicidal thoughts. Patient denies any drug use. PMH: Denies Pertinent Past Surgical History: Denies Family History: Noncontributory Social History: Alcohol, denies illicit drug use, denies cigarette smoking REVIEW OF SYSTEMS: All other systems negative Constitutional: No fever, no chills, appetite change. Eyes: No discharge, vision change ENT: No sore throat, congestion, ear pain. Cardiovascular: No chest pain, no palpitations. Respiratory: No cough, no shortness of breath. Gastrointestinal: Abdominal pain, nausea. No vomiting, diarrhea. Genitourinary: No hematuria, dysuria, flank pain, pelvic pain Musculoskeletal: No back pain, joint swelling, joint pain, myalgias. Skin: No rashes, color change. Neurological: No headache, dizziness, weakness. PHYSICAL EXAM: General Appearance: Alert, oriented, NAD, non-toxic appearing, VSS, no hypoxia. HEENT: TMs are clear bilaterally no perforation or FB, no injection, no evidence of serous or mucopurulent otitis. Oropharynx clear with no erythema or exudates, no tonsillar hypertrophy or asymmetry. Dentition without abnormality. Eyes: PERRLA, no acute vision change, mild horizontal nystagmus, swelling, discharge, pain or photosensitivity. Conjunctiva pink, no pallor or injection Neck: Supple, nontender, no lymphadenopathy, no midline pain, FROM, no meningismus. Respiratory: There are no retractions, lungs are clear to auscultation. Cardiac: Regular rate and rhythm, no murmurs or gallops. Gastrointestinal: Patient's abdomen is soft, he has diffuse and nonfocal abdominal tenderness to palpation without rigidity, guarding or focal peritoneal findings; when distracted he has no pain. Bowel sounds are present. Neurological: Alert and oriented x 3, CN 2-12 grossly intact, normal gait no ataxia, DTR's intact, normal sensation and strength Skin: Warm, dry, no rashes, no nodules on palpation. Musculoskeletal: Extremities are symmetrical, full range of motion, no tenderness, deformity, swelling, or erythema. Psychiatric: Patient is oriented X 3, intoxicated, agitated. MEDICAL DECISION MAKING: Patient was seen independently. Secondary supervising physician at time of evaluation was Dr. Perez. Diagnosis: Acute alcohol intoxication. Summary: See Assessment and Plan for summary of ED visit Clinical lab tests: Not applicable. Independent visualization of images, tracing, or specimens: Not applicable Decision to obtain medical records or history from someone other than the patient: Yes, police report Review / Summarize previous medical records: No Discussed patient with another provider: Yes, Dr. Perez. Patient Progress: Stable, to long-term. - Data Points Medications Given: Discontinued Medications Sodium Chloride (Ns) 1,000 mls @ 0 mls/hr IV ONCE ONE PRN Reason: Wide Open Stop: 08/21/18 20:01 Last Admin: 08/21/18 20:49 Dose: Not Given Ondansetron HCl (Zofran) 4 mg IVP Q4 PRN PRN Reason: Nausea/Vomiting, Can't Take PO Stop: 02/17/19 20:04 Last Admin: 08/21/18 20:50 Dose: 4 mg General Initial Vital Signs: Initial Vital Signs Temperature (C) 36.7 C 08/21/18 19:31 Heart Rate 99 08/21/18 19:31 Respiratory Rate 189 H 08/21/18 19:31 Blood Pressure 112/68 08/21/18 19:31 O2 Sat (%) 96 08/21/18 19:31 O2 Delivery Mode Room Air Allergies/Adverse Reactions: No Known Allergies Allergy (Verified 08/21/18 19:46) Home Medications: Medication Instructions Recorded NK [No Known Home Meds] 08/17/18 Departure - Departure Disposition: Law Enforcement/Court/Senior Living Condition: Good Instructions: Alcohol Intoxication (ED) Additional Instructions: MEDICALLY CLEARED FOR GROUP HOME DISCHARGE INSTRUCTIONS FROM YOUR DOCTOR Thank you for visiting our emergency department today. Please keep in mind that discharge from the emergency department does not mean that there is nothing wrong - it simply means that we have not identified an emergency condition that requires further evaluation or treatment in the hospital. You should always plan to follow up with primary care for re-evaluation of your condition in the next 2-3 days. If you have been referred to a specialist, please call as soon as possible (today or tomorrow) to schedule your follow up appointment at the appropriate time. Please avoid heavy alcohol use, it is very dangerous to your health and safety. Please followup with alcohol cessation resources provided. Seek immediate medical attention for seizures, confusion, uncontrolled vomiting , vomiting blood or other serious concerns. [facility] has walk-in appointments for the homeless at the following days/locations. No appointment is needed. Tuesday 8-10 am @ [facility] 11 AM-1 PM @ [facility] Tuesday 8-10:30 AM @ [facility] Tuesday 8-10 AM @ [facility] 2-4 PM @ [facility] Tuesday 8-10 AM @ [facility] People present with illnesses and injuries in different ways, and it is always possible that we have missed something. You may always return for re-evaluation if symptoms worsen or if they are not improving or if you develop new/different symptoms. Again, thank you for choosing our emergency department. We hope that you feel better. Referrals: NONE *PRIMARY CARE P,. [Primary Care Provider] - As per Instructions Susan Atkins MD [Medical Doctor] - Follow Up Only If Needed
[2018-08-21] MEDS ORDERED: ONDANSETRON 4 MG/2 ML VIAL IVP PRN (20:05)
== END 2018-08-21 20:58 ==
LOC: EDUNIT#
DX: F10.920 Alcohol use, unspecified with intoxication, uncomplicated (principal)

== ENCOUNTER 2018-09-17 16:51 | Emergency (ER) | payer OTHER, MEDICAID ==
--- NOTE | 2018-09-17 17:18 | EDPHY ---
H & P Smoking Status: Current every day smoker Time Seen by Provider: 09/17/18 16:57 HPI/ROS: CHIEF COMPLAINT: Suicide attempt, alcohol intoxication HISTORY OF PRESENT ILLNESS: 28-year-old male presents to the emergency department by ambulance after he attempted to hang himself at home. The patient 's roommates found him trying to wrapped a cord around his neck. Patient states "it was a self impulse". He does have a history of depression. He does have a history of alcoholism and receives Vivitrol injections monthly. His last Vivitrol injection was 08/21/2018. He admits to drinking alcohol today. No other drugs. The patient states that he is no longer suicidal and states "I want to live". He states "my kidneys hurt". He also complains of headache and some neck pain. No abdominal pain. No vomiting. No visual changes. No paresthesias in his upper or lower extremities. REVIEW OF SYSTEMS: Constitutional: No fever, no chills. Eyes: No double or blurry vision. ENT: No sore throat. Respiratory: No cough, no shortness of breath. Cardiac: No chest pain. Gastrointestinal: No abdominal pain, vomiting or diarrhea. Genitourinary: No dysuria. Musculoskeletal: As above Skin: No rashes. Neurological: Headache as above (Agustina De La Paz) Past Medical/Surgical History: Alcoholism (Agustina De La Paz) Social History: Single (Agustina De La Paz) Physical Exam: General Appearance: Alert, no distress. Smells of alcohol. Mentating normally and answering questions appropriately. No visible signs of trauma to his head or neck. Eyes: Pupils equal and round. Extraocular motions are all intact. ENT: Mouth: Mucous membranes moist. Respiratory: No wheezing, rhonchi, or rales, lungs are clear to auscultation. Cardiovascular: Regular rate and rhythm. Gastrointestinal: Abdomen is soft and nontender, no masses, no rebound or guarding, bowel sounds normal. Patient has bilateral CVA tenderness noted. No ecchymosis noted. Neurological: Alert and oriented x 3, cranial nerves II through XII grossly intact Skin: Warm and dry, no rashes. Musculoskeletal: Nontender to palpate along the cervical, thoracic or lumbar spine. Neck is supple. Extremities: Full range of motion and no peripheral edema. Psychiatric: Patient is oriented X 3, there is no agitation. (Agustina De La Paz) Constitutional: Initial Vital Signs Temperature (C) 36.8 C 09/17/18 16:51 Heart Rate 99 09/17/18 16:51 Respiratory Rate 18 09/17/18 16:51 Blood Pressure 124/77 H 09/17/18 16:51 O2 Sat (%) 93 09/17/18 16:51 O2 Delivery Mode Room Air Allergies/Adverse Reactions: No Known Allergies Allergy (Verified 08/21/18 19:46) Home Medications: Medication Instructions Recorded NK [No Known Home Meds] 08/17/18 Medical Decision Making ED Course/Re-evaluation: 28-year-old male presents to the emergency department on M1 hold after attempted suicide attempt by hanging. He smells strongly of alcohol. Laboratory studies are pending. ETOH level 372. Remainder of laboratory studies are within normal limits. No visible signs of trauma to his neck. He has no stridor. He has no sore throat. His neck is supple. I do not think imaging is indicated at this time. The patient will be evaluated by mental health when he is sober. (Agustina De La Paz) 0636: Patient has been evaluated by mental health. Contracts for safety. He denies wanting to hurt himself or anybody else. He states he made a mistake and got too intoxicated with alcohol last night. Patient now sober. He has been evaluated by mental health. Contracts for safety. Denies SI or HI. Is requesting discharge home. (Fabiano Vsos) Differential Diagnosis: Depression including functional and major depression, situational depression, medication side effect, drugs and alcohol abuse. (Agustina De La Paz) Care Turn Over: Care will be turned over to Dr. Voss for disposition and plan. (Agustina De La Paz) - Data Points Laboratory Results: Laboratory Results 09/17/18 15:20 09/17/18 15:20 09/17/18 19:15 Urine Opiates Screen NEGATIVE (NEGATIVE) Urine Barbiturates NEGATIVE (NEGATIVE) Ur Phencyclidine Scrn NEGATIVE (NEGATIVE) Ur Amphetamine Screen NEGATIVE (NEGATIVE) U Benzodiazepines Scrn NEGATIVE (NEGATIVE) Urine Cocaine Screen NEGATIVE (NEGATIVE) U Marijuana (THC) Screen NEGATIVE (NEGATIVE) Medications Given: Discontinued Medications Chlordiazepoxide HCl (Librium) 50 mg PO EDNOW ONE Stop: 09/18/18 06:02 Last Admin: 09/18/18 06:03 Dose: 50 mg Departure - Departure Disposition: Home, Routine, Self-Care Clinical Impression: Alcoholism, Attempted suicide Condition: Good Instructions: Alcohol Intoxication (ED) Additional Instructions: 1. Return emergency room if you have any worsening symptoms questions or concerns. 2. Follow up with resources you have been provided 3. Return immediately to the emergency room if you have thoughts of harming herself or somebody else. Referrals: NONE *PRIMARY CARE P,. [Primary Care Provider] - As per Instructions [facility] [Clinic] - As per Instructions
[2018-09-17 17:44] LABS: PLATELET COUNT 284 10^3/uL (150-400)
[2018-09-18] MEDS ORDERED: HYDROmorphONE/DILAUDID 2 MG/ML INJ IVP ONE (02:14)
[2018-09-18] MEDS ORDERED: NS 1,000 ML IV ONE (02:14)
[2018-09-18] MEDS ORDERED: ONDANSETRON 4 MG/2 ML VIAL IVP ONE (02:14)
[2018-09-18] MEDS ORDERED: chlordiazePOXIDE 25 MG CAP ONE (05:58)
[2018-09-18] MEDS ORDERED: chlordiazePOXIDE 25 MG CAP PO ONE (06:01)
[2018-09-18 06:04] VITALS: BP 131/81
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
--- NOTE | 2018-09-18 07:06 | ASMTTCLDSP ---
TLC Discharge Disposition Disposition: Answers: Discharge If Answers: Yes DISCHARGED: Patient/family given suicide hotline info & [facility] brochure? Disposition Notes: Notes: Pt stated commitment or ability to keep self safe, denied thoughts of self harm or harm to others. Pt was given local hotline information and [facility] brochure After an Attempt and encouraged to follow up with providers at [facility]/ on 09/27/18. Discharge Concerns/Recommendations: Notes: In consultation with [facility] ED physician, Fabiano Voss MD, Dr. Voss concurred that pt does not appear to meet 27-65 criteria requiring psychiatric hospitalization as pt does not appear to be an imminent risk of harm to self/others/gravely disabled due to a mental illness condition. Dr. Voss provided telephone order read back vacating M1 hold at 0630 hrs. Was patient given the Answers: Not applicable Inpatient Behavioral Health Prohibited Belongings List while in the ED? Psychiatrist vacating M1 Fabiano Voss MD Hold: Date and time M1 hold 09/18/2018 06:30 AM vacated (time format is hh:mm): Type of Hold: Answers: M1/72-hour Hold Hold initiated by: Answers: Police Date Signed: 09/18/2018 07:06 AM Electronically Signed By:Ramy Paulson
== END 2018-09-18 06:49 | disposition home or self-care (01) ==
DX: F10.920 Alcohol use, unspecified with intoxication, uncomplicated (principal); R45.851 Suicidal ideations
CPT/HCPCS: 80305; G0480

== ENCOUNTER 2019-02-03 21:36 | Emergency (ER) | payer OTHER, MEDICAID | END 2019-02-03 23:59 | disposition home or self-care (01) ==